=== PATIENT | male | born 1930 | race Two or more races ===

== ENCOUNTER 2018-11-09 18:45 | Inpatient (IN) | payer MEDICARE, OTHER ==
[~2018-11-09] VITALS: Ht 167.6 cm; Wt 72.3 kg
[~2018-11-09 18:45] MED LIST: UNOBMED
[2018-11-09 19:15] VITALS: BP 195/99
--- NOTE | 2018-11-09 19:20 | NUR ---
ED Nurse Note: Patient walked in to ER with his caregiver, c/o shakiness. Per patient's caregiver she noticed him shaky, and decided to bring to ER. AAO x4, BP 195/99 other VSSat this time, BS upon arrival is 151, skin is dry warm to touch.
--- NOTE | 2018-11-09 19:35 | Emergency Room Report ---
History of Present Illness General Chief Complaint: General Complaint Source: Patient, Family Member Present Illness HPI Patient presents after an episode of shaking. The family believed that his blood sugar was low at that time. Paramedics came out and the family believes that they administered insulin however this is not possible. Most likely an Accu-Chek was performed. They were advised to come to the emergency department. The patient has a history of hypertension and diabetes. It is not certain what medications the patient takes. He is denying all symptoms at this time including pain, weakness, nausea, vomiting, cough, shortness of breath, dysuria with diarrhea, skin rashes, head ache. Daughter is unable to tell us what medications the patient is on. She insists that the medications are at home. The patient was admitted in 2016 with these discharge diagnoses: 1. Methicillin-resistant Staphylococcus aureus cellulitis. 2. Escherichia coli urinary tract infection. 3. Paroxysmal atrial fibrillation. 4. Hypertensive heart disease with hypertensive urgency. 5. Moderate protein-calorie malnutrition. 6. Cellulitis of leg. 7. Acute on chronic diastolic congestive heart failure. 8. Chronic kidney disease. 9. Atrial fibrillation with rapid ventricular response, resolved. 10. Sepsis. 11. Diabetes, out of control. 12. Stage II sacral ulcer, present on admission with full-thickness erosion on the right dorsal foot and left buttock, present on admission. Allergies: Coded Allergies: PENICILLIN G (Verified Allergy, Unknown, 11/08/15) Patient History Past Medical History: see triage record Social History: Denies: smoking Social History Narrative Brought in by family Reviewed Nursing Documentation: PMH: Agreed; PSxH: Agreed Nursing Documentation-PM Past Medical History: No History, Except For Hx Diabetes: Yes Review of Systems All Other Systems: negative except mentioned in HPI Physical Exam Vital Signs Date Time Temp Pulse Resp B/P (MAP) Pulse Ox O2 Delivery O2 Flow Rate FiO2 11/09/18 18:51 98.4 76 21 165/63 (97) 96 Room Air Sp02 EP Interpretation: reviewed, normal General Appearance: alert, non-toxic, Chronically Ill Head: normocephalic Eyes: bilateral eye normal inspection, bilateral eye PERRL, bilateral eye EOMI ENT: moist mucus membranes Neck: full range of motion, supple, no bony tend Respiratory: chest non-tender, lungs clear, normal breath sounds Cardiovascular #1: regular rate, rhythm Cardiovascular #2: 2+ radial (R) Gastrointestinal: normal inspection, normal bowel sounds, non tender, no mass, non-distended Genitourinary: no CVA tenderness Musculoskeletal: back normal, normal range of motion Neurologic: alert, motor strength/tone normal, sensory intact, speech normal, oriented Psychiatric: other - Flat affect and denying most symptoms Skin: no rash, warm/dry Medical Decision Making Diagnostic Impression: Primary Impression: UTI (urinary tract infection) Qualified Codes: N39.0 - Urinary tract infection, site not specified Additional Impressions: Renal failure Qualified Codes: N17.9 - Acute kidney failure, unspecified Hypertension Qualified Codes: I10 - Essential (primary) hypertension ER Course Patient presents post shaking episode. Is unclear whether her blood sugar was abnormal at that time but it is suggested that it was normal. Differential includes acute myocardial infarction, occult infection, electrolyte imbalance, glucose imbalance amongst others. The family and the patient denied loss of consciousness. Evaluation will be with EKG, chest x-ray and labs. The patient is hypertensive and this needs to be followed. Was requested that the family give us blood pressure medication. Also we will attempt to contact [facility] for the medications the patient is on. A dose of Catapres will be given orally. EKG without injury. Chest x-ray no infiltrates. CBC unremarkable. CMP with renal insufficiency. (At the time we did not have the correct name and unable to correlate prior labs.) Urinalysis with pyuria. Elevated BNP. Antibiotics administered. BP slightly better but still high. Will give Labetalol as slightly tachycardic. Patient admitted to medical floor Dr. Murphy. At the time of admission there is no evidence of the private attending. Laboratory Tests Test 11/09/18 19:55 11/09/18 20:30 White Blood Count 7.9 K/UL (4.8-10.8) Red Blood Count 3.43 M/UL (4.70-6.10) L Hemoglobin 10.7 G/DL (14.2-18.0) L Hematocrit 30.8 % (42.0-52.0) L Mean Corpuscular Volume 90 FL (80-99) Mean Corpuscular Hemoglobin 31.3 PG (27.0-31.0) H Mean Corpuscular Hemoglobin Concent 34.8 G/DL (32.0-36.0) Red Cell Distribution Width 12.5 % (11.6-14.8) Platelet Count 188 K/UL (150-450) Mean Platelet Volume 5.8 FL (6.5-10.1) L Neutrophils (%) (Auto) 52.1 % (45.0-75.0) Lymphocytes (%) (Auto) 35.2 % (20.0-45.0) Monocytes (%) (Auto) 8.4 % (1.0-10.0) Eosinophils (%) (Auto) 3.9 % (0.0-3.0) H Basophils (%) (Auto) 0.4 % (0.0-2.0) Prothrombin Time 9.7 SEC (9.30-11.50) Prothrombin Time INR 0.9 (0.9-1.1) PTT 25 SEC (23-33) Sodium Level 139 MMOL/L (136-145) Potassium Level 4.5 MMOL/L (3.5-5.1) Chloride Level 108 MMOL/L (98-107) H Carbon Dioxide Level 22 MMOL/L (21-32) Anion Gap 9 mmol/L (5-15) Blood Urea Nitrogen 49 mg/dL (7-18) H Creatinine 3.3 MG/DL (0.55-1.30) H Estimate Glomerular Filtration Rate mL/min (>60) Glucose Level 127 MG/DL (74-106) H Lactic Acid Level 0.60 mmol/L (0.4-2.0) Calcium Level 8.6 MG/DL (8.5-10.1) Total Bilirubin 0.2 MG/DL (0.2-1.0) Aspartate Amino Transferase (AST) 15 U/L (15-37) Alanine Aminotransferase (ALT) 12 U/L (12-78) Alkaline Phosphatase 77 U/L (46-116) Total Creatine Kinase 137 U/L (26-308) Troponin I 0.012 ng/mL (0.000-0.056) Pro-B-Type Natriuretic Peptide 1931 pg/mL (0-125) H Total Protein 6.4 G/DL (6.4-8.2) Albumin 3.4 G/DL (3.4-5.0) Globulin 3.0 g/dL Albumin/Globulin Ratio 1.1 (1.0-2.7) Lipase 449 U/L (73-393) H Urine Color Pale yellow Urine Appearance Clear Urine pH 6 (4.5-8.0) Urine Specific [place] 1.015 (1.005-1.035) Urine Protein 4+ (NEGATIVE) H Urine Glucose (UA) 1+ (NEGATIVE) H Urine Ketones Negative (NEGATIVE) Urine Blood 1+ (NEGATIVE) H Urine Nitrite Positive (NEGATIVE) H Urine Bilirubin Negative (NEGATIVE) Urine Urobilinogen Normal MG/DL (0.0-1.0) Urine Leukocyte Esterase 3+ (NEGATIVE) H Urine RBC 2-4 /HPF (0 - 0) H Urine WBC 30-40 /HPF (0 - 0) H Urine Squamous Epithelial Cells None /LPF (NONE/OCC) Urine Bacteria Many /HPF (NONE) H EKG Diagnostic Results Rate: normal Rhythm: NSR ST Segments: no acute changes - Sinus rhythm with first-degree AV block left axis deviation bundle branch block Rhythm Strip Diag. Results EP Interpretation: yes Rhythm: NSR, no PVC's, no ectopy Chest X-Ray Diagnostic Results Chest X-Ray Diagnostic Results : Chest X-Ray Ordered: Yes # of Views/Limited/Complete: 1 View Indication: Other EP Interpretation: Yes Interpretation: no consolidation, no effusion, no pneumothorax Impression: No acute disease Electronically Signed by: Electronically signed by Geoff Liu MD Last Vital Signs Date Time Temp Pulse Resp B/P (MAP) Pulse Ox O2 Delivery O2 Flow Rate FiO2 11/10/18 04:00 97.7 82 18 174/84 (114) 96 11/10/18 00:42 Room Air Status: improved Disposition: ADMITTED INPATIENT Condition: Serious Geoff Liu MD Nov 09, 2018 19:35
[2018-11-09 20:23] LABS: ANION GAP 9 mmol/L (5-15); BLOOD UREA NITROGEN 49 mg/dL (7-18); CALCIUM 8.6 MG/DL (8.5-10.1); CARBON DIOXIDE 22 MMOL/L (21-32); CHLORIDE 108 MMOL/L (98-107); CREATININE 3.3 MG/DL (0.55-1.30); POTASSIUM 4.5 MMOL/L (3.5-5.1); SODIUM 139 MMOL/L (136-145)
[2018-11-09 20:24] LABS: INR 0.9 (0.9-1.1)
[2018-11-09 20:26] LABS: BASOPHILS % (AUTO) 0.4 % (0.0-2.0); EOSINOPHILS % (AUTO) 3.9 % (0.0-3.0); HEMATOCRIT 30.8 % (42.0-52.0); HEMOGLOBIN 10.7 G/DL (14.2-18.0); LYMPHOCYTES % (AUTO) 35.2 % (20.0-45.0); MEAN CORPUSCULAR VOLUME 90 FL (80-99); MONOCYTES % (AUTO) 8.4 % (1.0-10.0); NEUTROPHILS % (AUTO) 52.1 % (45.0-75.0); PLATELET COUNT 188 K/UL (150-450); RED BLOOD COUNT 3.43 M/UL (4.70-6.10); RED CELL DISTRIBUTION WIDTH 12.5 % (11.6-14.8); WHITE BLOOD COUNT 7.9 K/UL (4.8-10.8)
[2018-11-09 20:33] LABS: ALANINE AMINOTRANSFERASE 12 U/L (12-78); ALBUMIN 3.4 G/DL (3.4-5.0); ALBUMIN/GLOBULIN RATIO 1.1 (1.0-2.7); ALKALINE PHOSPHATASE 77 U/L (46-116); ASPARTATE AMINO TRANSFERASE 15 U/L (15-37); BILIRUBIN,TOTAL 0.2 MG/DL (0.2-1.0); CREATINE KINASE 137 U/L (26-308)
[2018-11-09 20:37] LABS: APPEARANCE,URINE CLEAR; BILIRUBIN, URINE NEGATIVE (NEGATIVE); COLOR,URINE PALE YELLOW; GLUCOSE, URINE (UA) 1+ (NEGATIVE); KETONES,URINE NEGATIVE (NEGATIVE); LEUKOCYTE ESTERASE ,URINE 3+ (NEGATIVE); NITRITE,URINE POSITIVE (NEGATIVE); PH,URINE 6 (4.5-8.0); PROTEIN,URINE 4+ (NEGATIVE); UROBILINOGEN,URINE NORMAL MG/DL (0.0-1.0)
[2018-11-09] MEDS ORDERED: cloNIDine 0.2mg Tab ORAL ONE (21:00)
[2018-11-09] MEDS ORDERED: cefTRIAXone 1 GM in NS 55 ML IVPB ONE (21:00)
[2018-11-09 21:15] VITALS: BP 185/87
[2018-11-09] MEDS ORDERED: Labetalol 5mg/ml 20ml vial IV ONE (22:15)
--- NOTE | 2018-11-09 23:00 | NUR ---
NURSE NOTES: Received a report from ANSON Mckeon. Awaiting for pt's arrival.
[2018-11-09 23:15] VITALS: BP 170/65
--- NOTE | 2018-11-09 23:30 | NUR ---
ED Nurse Note: Patient was admited to [facility] due to severe UTI, kidney failure. AAO x4, VSS at this time, skin is warm to touch. Patient was transfered via gurney, with all belongings.
[2018-11-10] VITALS (9 sets, daily range): BP systolic 118–186; BP diastolic 68–88
--- NOTE | 2018-11-10 | NUR ---
NURSE NOTES: Pt arrived in the unit. AAOX4. Able to make needs known. Kiswahili speaking, but speaks a little bit of American. On room air. No c/o pain/discomfort. IV site is patent and intact. Skin on the feet are very dry. Overall, skin is intact. He has his own cane at the bedside. He has $26 armijo in his wallet. Belongings are checked. Belonging list is signed. Bed in lowest position. Bed alarm is on. Call light within reach. Will continue to monitor.
[2018-11-10] MEDS: HydrALAZINE 25mg tab ORAL PRN ×2 (00:23→04:36)
[2018-11-10] MEDS ORDERED: HydrALAZINE 25mg tab ORAL SCH (01:00)
[2018-11-10] MEDS: NovoLOG Insulin Flexpen SUBQ SCH ×4 (05:59→20:58)
[2018-11-10 07:14] LABS: BASOPHILS % (AUTO) 1.3 % (0.0-2.0); HEMOGLOBIN 10.2 G/DL (14.2-18.0); LYMPHOCYTES % (AUTO) 33.5 % (20.0-45.0); MEAN CORPUSCULAR VOLUME 93 FL (80-99); MONOCYTES % (AUTO) 7.3 % (1.0-10.0); NEUTROPHILS % (AUTO) 53.9 % (45.0-75.0); PLATELET COUNT 169 K/UL (150-450); RED BLOOD COUNT 3.32 M/UL (4.70-6.10); RED CELL DISTRIBUTION WIDTH 13.5 % (11.6-14.8)
--- NOTE | 2018-11-10 07:15 | NUR ---
HAND-OFF: Report given to ANSON Napier.
[2018-11-10 07:32] LABS: ANION GAP 12 mmol/L (5-15); BLOOD UREA NITROGEN 46 mg/dL (7-18); CALCIUM 8.6 MG/DL (8.5-10.1); CARBON DIOXIDE 19 MMOL/L (21-32); CHLORIDE 109 MMOL/L (98-107); POTASSIUM 4.7 MMOL/L (3.5-5.1); SODIUM 140 MMOL/L (136-145)
--- NOTE | 2018-11-10 07:42 | NUR ---
NURSE NOTES: received report from ANSON Arreola. patient in bed. alert. verbally responsive in Tongan. no respiratory distress noted on room air. no pain at this time. IV on RAC running 1/2 NS 75/hr. bed in the lowest position. call light within reach. alarm on . cane at the bed side. will continue to provide plan of care.
[2018-11-10 07:46] LABS: CREATININE 3.1 MG/DL (0.55-1.30)
[2018-11-10] MEDS ORDERED: Levofloxacin 500mg tab ORAL SCH (09:00)
[2018-11-10] MEDS ORDERED: Carvedilol 6.25mg Tab ORAL SCH (09:00)
[2018-11-10] MEDS: Carvedilol 12.5mg tab ORAL SCH ×2 (09:44→20:55)
--- NOTE | 2018-11-10 12:00 | NUR ---
NURSE NOTES: called acute care physician Rochelle and left message to bring patient's home medications.
--- NOTE | 2018-11-10 12:31 | Diagnostic Imaging Report ---
Indication: Acute renal failure Technique: Grayscale and duplex images of the kidneys, retroperitoneum, and bladder were obtained. Comparison: none Findings: Right kidney measures 10.4 cm in length. Left kidney measures 9.7 cm in length. Both kidneys demonstrate normal echogenicity. There is mild left hydronephrosis and mild right renal collecting system fullness. Renal cysts are demonstrated bilaterally. The bladder volume measures 175 mL. Patient did not wish to void at the time of the exam. The prostate is enlarged, calculated volume 108 mL. Bilateral ureteral jets are demonstrated within the bladder There is incidental finding of gallstones. Normal caliber common bile duct Impression: Mild left hydronephrosis and right collecting system fullness. Etiology not demonstrated but downstream obstruction possible Prostatomegaly Bilateral renal cysts Cholelithiasis incidentally noted .
--- NOTE | 2018-11-10 13:05 | NUR ---
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 RENAL FAILURE VS: BP 165/63, P 76, T 98.4, RR 21, SpO2 96 UR WBC 30-40, BACTERIA many, BUN 49, CR 3.3 US RENAL: Mild left hydronephrosis and right collecting system fullness IS: CLONIDINE 0.2mg CEFTRIAXONE 55ml IVPB LABETALOL 10mg IV NS x1L IV ADMITTED TO MED/[facility] DCP: TO BE DETERMIND ON ACRE NEED AT TIME OF DC Addendum: 11/13/18 at 0859 by Lise Avery LVN Patient is from home DCP: Return home
[2018-11-10] MEDS: HydrALAZINE 50mg tab ORAL SCH ×2 (13:13→22:24)
--- NOTE | 2018-11-10 14:00 | NUR ---
NURSE NOTES: restorative care technician/Rochelle brought patient's home medications. put mediations on the list.
[2018-11-10] MEDS ORDERED: ADALAT10 MG ORAL (16:06)
[2018-11-10] MEDS ORDERED: FLOMAX0.4 MG ORAL (16:10)
[2018-11-10] MEDS ORDERED: GABAPENTIN100 MG ORAL (16:10)
[2018-11-10] MEDS ORDERED: PRAVASTATIN SOD20 M1 ORAL (16:10)
[2018-11-10] MEDS ORDERED: COLACE100 MG ORAL (16:10)
[2018-11-10] MEDS ORDERED: FERROUS SULFAT325 MG ORAL (16:10)
--- NOTE | 2018-11-10 17:30 | NUR ---
NURSE NOTES: blood pressure 186/71 @1600. no symptomatic. no c/o headache. given norvasc 10mg tap po as ordered at 1700. rechecked blood pressure at 1730. 137/78. alert, oriented. verbally responsive. no pain at this time.
--- NOTE | 2018-11-10 17:41 | Consultation ---
History of Present Illness General Date patient seen: Nov 10, 2018 Chief Complaint: General Complaint Present Illness HPI 88 y/o M with hx of HTN, Dm2, MRSA cellulitis 2016, E. coli UTI 2016, pAfib, CHF , CKD, sacral decubitus ulcer presents to ED on 11/09 after one episode of shaking. Patient found to have CONCETTA. Denied weakness, pain, nausea, vomiting, cough, SOB, dysuria. ID consulted for concern for UTI. Allergies: Coded Allergies: PENICILLIN G (Verified Allergy, Unknown, 11/08/15) Medication History Scheduled Docusate Sodium* (Colace*), 100 MG ORAL TWICE A DAY, (Reported) Ferrous Sulfate* (Ferrous Sulfate*), 325 MG ORAL DAILY, (Reported) Gabapentin* (Gabapentin*), 100 MG ORAL BEDTIME, (Reported) Nifedipine (Nifedipine*), 90 MG ORAL DAILY, (Reported) Pravastatin Sod* (Pravastatin Sod*), 40 MG ORAL BEDTIME, (Reported) Tamsulosin HCl (Flomax), 0.4 MG ORAL DAILY, (Reported) Miscellaneous Medications Unable to Obtain Medications (Unable To Obtain Meds), (Reported) Patient History Healthcare decision maker Resuscitation status Full Code Advanced Directive on File No Patient History Narrative Pmhx: as above Shx: Denies smoking Fhx: non contributory Review of Systems All Other Systems: negative except mentioned in HPI Physical Exam Physical Exam Narrative General Appearance: alert, non-toxic, Chronically Ill Head: normocephalic Eyes: bilateral eye normal inspection, bilateral eye PERRL, bilateral eye EOMI ENT: moist mucus membranes Neck: full range of motion, supple, no bony tend Respiratory: chest non-tender, lungs clear, normal breath sounds Cardiovascular : regular rate, rhythm Gastrointestinal: normal inspection, normal bowel sounds, non tender, no mass, non-distended Genitourinary: no CVA tenderness Musculoskeletal: back normal, normal range of motion Neurologic: alert, motor strength/tone normal, sensory intact, speech normal, oriented Psychiatric: other - Flat affect and denying most symptoms Skin: no rash, warm/dryAbx: Last 24 Hour Vital Signs Date Time Temp Pulse Resp B/P (MAP) Pulse Ox O2 Delivery O2 Flow Rate FiO2 11/10/18 17:03 73 186/71 11/10/18 16:00 97.8 73 18 186/71 (109) 96 11/10/18 13:13 159/87 11/10/18 12:00 98.0 79 18 157/77 (103) 96 11/10/18 09:44 78 118/68 11/10/18 09:44 78 118/68 11/10/18 09:00 Room Air 11/10/18 08:00 98.0 78 18 118/68 (85) 97 11/10/18 04:36 174/84 11/10/18 04:00 97.7 82 18 174/84 (114) 96 11/10/18 00:42 Room Air 11/10/18 00:23 161/70 11/10/18 00:00 98.1 82 19 161/70 (100) 95 11/09/18 23:32 98.2 74 14 170/65 98 Room Air 11/09/18 23:15 98.4 74 14 170/65 98 Room Air 11/09/18 22:31 79 185/89 11/09/18 21:15 98.4 72 18 185/87 98 Room Air 11/09/18 21:11 201/99 11/09/18 19:15 76 21 Room Air 11/09/18 19:15 98.4 21 195/99 96 Room Air 11/09/18 18:51 98.4 76 21 165/63 (97) 96 Room Air Intake and Output 11/09/18 11/10/18 18:59 06:59 Intake Total 570 ml Balance 570 ml Intake Oral 120 ml IV Total 450 ml # Voids 3 Laboratory Tests Test 11/09/18 19:55 11/09/18 20:30 11/10/18 06:00 White Blood Count 7.9 K/UL (4.8-10.8) 9.0 K/UL (4.8-10.8) Red Blood Count 3.43 M/UL (4.70-6.10) L 3.32 M/UL (4.70-6.10) L Hemoglobin 10.7 G/DL (14.2-18.0) L 10.2 G/DL (14.2-18.0) L Hematocrit 30.8 % (42.0-52.0) L 31.0 % (42.0-52.0) L Mean Corpuscular Volume 90 FL (80-99) 93 FL (80-99) Mean Corpuscular Hemoglobin 31.3 PG (27.0-31.0) H 30.6 PG (27.0-31.0) Mean Corpuscular Hemoglobin Concent 34.8 G/DL (32.0-36.0) 32.8 G/DL (32.0-36.0) Red Cell Distribution Width 12.5 % (11.6-14.8) 13.5 % (11.6-14.8) Platelet Count 188 K/UL (150-450) 169 K/UL (150-450) Mean Platelet Volume 5.8 FL (6.5-10.1) L 5.7 FL (6.5-10.1) L Neutrophils (%) (Auto) 52.1 % (45.0-75.0) 53.9 % (45.0-75.0) Lymphocytes (%) (Auto) 35.2 % (20.0-45.0) 33.5 % (20.0-45.0) Monocytes (%) (Auto) 8.4 % (1.0-10.0) 7.3 % (1.0-10.0) Eosinophils (%) (Auto) 3.9 % (0.0-3.0) H 4.0 % (0.0-3.0) H Basophils (%) (Auto) 0.4 % (0.0-2.0) 1.3 % (0.0-2.0) Prothrombin Time 9.7 SEC (9.30-11.50) Prothromb Time International Ratio 0.9 (0.9-1.1) Activated Partial Thromboplast Time 25 SEC (23-33) Sodium Level 139 MMOL/L (136-145) 140 MMOL/L (136-145) Potassium Level 4.5 MMOL/L (3.5-5.1) 4.7 MMOL/L (3.5-5.1) Chloride Level 108 MMOL/L (98-107) H 109 MMOL/L (98-107) H Carbon Dioxide Level 22 MMOL/L (21-32) 19 MMOL/L (21-32) L Anion Gap 9 mmol/L (5-15) 12 mmol/L (5-15) Blood Urea Nitrogen 49 mg/dL (7-18) H 46 mg/dL (7-18) H Creatinine 3.3 MG/DL (0.55-1.30) H 3.1 MG/DL (0.55-1.30) H Estimat Glomerular Filtration Rate mL/min (>60) mL/min (>60) Glucose Level 127 MG/DL (74-106) H 142 MG/DL (74-106) H Lactic Acid Level 0.60 mmol/L (0.4-2.0) Calcium Level 8.6 MG/DL (8.5-10.1) 8.6 MG/DL (8.5-10.1) Total Bilirubin 0.2 MG/DL (0.2-1.0) Aspartate Amino Transf (AST/SGOT) 15 U/L (15-37) Alanine Aminotransferase (ALT/SGPT) 12 U/L (12-78) Alkaline Phosphatase 77 U/L (46-116) Total Creatine Kinase 137 U/L (26-308) Troponin I 0.012 ng/mL (0.000-0.056) Pro-B-Type Natriuretic Peptide 1931 pg/mL (0-125) H Total Protein 6.4 G/DL (6.4-8.2) Albumin 3.4 G/DL (3.4-5.0) Globulin 3.0 g/dL Albumin/Globulin Ratio 1.1 (1.0-2.7) Lipase 449 U/L (73-393) H Urine Color Pale yellow Urine Appearance Clear Urine pH 6 (4.5-8.0) Urine Specific [place] 1.015 (1.005-1.035) Urine Protein 4+ (NEGATIVE) H Urine Glucose (UA) 1+ (NEGATIVE) H Urine Ketones Negative (NEGATIVE) Urine Blood 1+ (NEGATIVE) H Urine Nitrite Positive (NEGATIVE) H Urine Bilirubin Negative (NEGATIVE) Urine Urobilinogen Normal MG/DL (0.0-1.0) Urine Leukocyte Esterase 3+ (NEGATIVE) H Urine RBC 2-4 /HPF (0 - 0) H Urine WBC 30-40 /HPF (0 - 0) H Urine Squamous Epithelial Cells None /LPF (NONE/OCC) Urine Bacteria Many /HPF (NONE) H Microbiology Date/Time Source Procedure Growth Status 11/09/18 20:30 Urine,Clean Catch Urine Culture - Preliminary NO GROWTH Resulted Height (Feet): 5 Height (Inches): 6.00 Weight (Pounds): 160 Medications Current Medications Medications (Trade) Dose Ordered Sig/Tereza Route PRN Reason Start Time Stop Time Status Last Admin Dose Admin Acetaminophen (Tylenol) 650 mg Q4H PRN ORAL Mild Pain (Pain Scale 1-3) 11/09/18 22:30 12/09/18 22:29 Amlodipine Besylate (Norvasc) 5 mg BID ORAL 11/10/18 09:00 12/10/18 08:59 11/10/18 17:03 Carvedilol (Coreg) 12.5 mg EVERY 12 HOURS ORAL 11/10/18 09:00 12/10/18 08:59 11/10/18 09:44 Dextrose (Dextrose 50%) 25 ml Q30M PRN IV Hypoglycemia 11/09/18 22:30 12/09/18 22:29 Dextrose (Dextrose 50%) 50 ml Q30M PRN IV Hypoglycemia 11/09/18 22:30 12/09/18 22:29 Diphenhydramine HCl (Benadryl) 25 mg Q6H PRN ORAL Itching/Pruritis 11/09/18 22:30 12/09/18 22:29 Hydralazine HCl (Apresoline) 25 mg Q4HR PRN ORAL For High Blood Pressure 11/10/18 01:00 12/10/18 00:59 11/10/18 04:36 Hydralazine HCl (Apresoline) 50 mg Q8HR ORAL 11/10/18 14:00 12/10/18 13:59 11/10/18 13:13 Insulin Aspart (NovoLOG) BEFORE MEALS AND HS SUBQ 11/10/18 06:30 12/10/18 06:29 11/10/18 17:04 Levofloxacin (Levaquin) 250 mg Q48H ORAL 11/11/18 09:00 11/18/18 08:59 Pantoprazole (Protonix) 40 mg DAILY ORAL 11/10/18 09:00 12/10/18 08:59 11/10/18 09:44 Sodium Chloride 1,000 ml @ 75 mls/hr [id number] IV 11/09/18 23:25 12/09/18 23:24 11/10/18 13:04 Assessment/Plan Assessment/Plan: Abx: Levaquin 11/10- Ceftriaxone x 11/09 Assessment: Afebrile No leukocytosis r/o Probable UTI (+frequency) -u/a wbc 20-40,nit +. leuk +3; ucx NTD CONCETTA on CKD Mild Hydronephrosis -Renal US: Mild left hydronephrosis and right collecting system fullness. Etiology not demonstrated but downstream obstruction possible. Prostatomegaly. Bilateral renal cysts. Cholelithiasis incidentally noted HTN Dm2 MRSA cellulitis 2016 E. coli UTI 2016 pAfib CHF CKD sacral decubitus ulcer Plan: -Continue empiric Levaquin #1 pending UCx -f/u cx -Monitor CBC/CMP, temperatures -aspiration precautions Thank you for this consultation. Will continue to follow along with you. Discussed with ANSON. Henna Pendleton M.D. Nov 10, 2018 17:41
--- NOTE | 2018-11-10 17:45 | History and Physical Report ---
DATE OF ADMISSION: 11/09/2018 REASON FOR ADMISSION: 1. Shaking. 2. Hypoglycemia. 3. UTI. HISTORY OF PRESENT ILLNESS: The patient is an 88-year-old gentleman, who presented with episodes of shaking. Family believes that he was hypoglycemic. Paramedics had come out and seemingly had done an Accu-Chek. He was advised to come to the emergency room for further evaluation and care. The patient has some underlying hypertension and diabetes. He did have an elevated white count with possible urinary tract infection. Noted elevated creatinine from baseline. Creatinine upon admission was 3.3. Baseline 3 years ago was approximately 1.5. PAST MEDICAL HISTORY: 1. Methicillin Staph aureus cellulitis. 2. E. coli urinary tract infection. 3. Paroxysmal atrial fibrillation. 4. Hypertensive heart disease. 5. Leg cellulitis. 6. Diabetes. 7. Stage II sacral ulcer. PAST SURGICAL HISTORY: Noncontributory. ALLERGIES: Penicillin. SOCIAL HISTORY: No tobacco, alcohol, or illicit drug use. FAMILY HISTORY: Positive for hypertension and diabetes. REVIEW OF SYSTEMS: NEUROLOGIC: The patient denies headache, change in vision, syncope, or presyncopal episodes. CARDIOVASCULAR: No current chest pain, palpitations, or angina. PULMONARY: No difficulty breathing, productive cough, or sputum. GASTROINTESTINAL/GENITOURINARY: No change in urine or bowel habits. No nausea, vomiting, or diarrhea. ENDOCRINOLOGY: No night sweats, fevers, or chills. PHYSICAL EXAMINATION: VITAL SIGNS: Blood pressure 174/84, respiratory rate 18, pulse 82, and temperature 97.7. GENERAL: The patient is awake, seemingly alert, and not otherwise in distress. HEENT: Extraocular muscles intact. No lymphadenopathy noted. Oropharyngeal mucosa clear and dry. CARDIOVASCULAR: S1, S2. No rubs or gallops. PULMONARY: Clear to auscultation bilaterally. No rales, rhonchi or wheezes. ABDOMINAL: Obese, nondistended, and nontender. EXTREMITY: No edema. LABORATORY DATA: Laboratories dated 11/10/2018 sodium 140, potassium 4.7, and creatinine 3.1. Lipase 449. White cell count 9, hemoglobin 10.2, and platelet count 169,000. ASSESSMENT AND PLAN: 1. Urinary tract infection. I have initiated intravenous antibiotics and we will also consult Infectious Disease for further evaluation and management. We will continue fluoroquinolones as the patient is allergic to penicillin. 2. Diabetes mellitus. At this time, we will continue to monitor the patient with Accu-Cheks and insulin sliding scale. 3. Hypertension. We will continue to adjust medications. At this time, we are still trying to obtain the patient's home medications and we will adjust as deemed necessary. 4. DVT prophylaxis with SCDs. 5. 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 Creatinine 3 years ago was 1.5. Currently has improved to 3.1. Renal ultrasound to rule out possibility of obstructive etiology. Avoid nephrotoxins for treating underlying urinary tract infection and gently hydrate the patient. Orlando Murphy MD DR: AJIT JOB#: [id number] CC: GOKUL
--- NOTE | 2018-11-10 19:31 | NUR ---
NURSE NOTES:Patient received from Jevon Marley Patient A/A/OX4 Patient denies any pain at this time . No s/s of distress noted RFA g#22 1/2 ns at 75 cc/ hr infusing well. safety/ fall precaution call light within reach . bed in low position at all times . bed alarm on . will continue to monitor
--- NOTE | 2018-11-10 19:31 | NUR ---
HAND-OFF: Report given to ANSON Sheth.
[2018-11-11] VITALS: BP 150/81
[2018-11-11 04:00] VITALS: BP 138/88
[2018-11-11] MEDS: HydrALAZINE 50mg tab ORAL SCH ×3 (06:17→21:08)
[2018-11-11] MEDS: NovoLOG Insulin Flexpen SUBQ SCH ×4 (06:21→21:09)
[2018-11-11 06:49] LABS: ANION GAP 9 mmol/L (5-15); BLOOD UREA NITROGEN 40 mg/dL (7-18); CALCIUM 8.1 MG/DL (8.5-10.1); CARBON DIOXIDE 21 MMOL/L (21-32); CHLORIDE 112 MMOL/L (98-107); CREATININE 2.8 MG/DL (0.55-1.30); POTASSIUM 4.9 MMOL/L (3.5-5.1); SODIUM 142 MMOL/L (136-145)
[2018-11-11 06:57] LABS: BASOPHILS % (AUTO) 1.2 % (0.0-2.0); HEMOGLOBIN 9.9 G/DL (14.2-18.0); MEAN CORPUSCULAR VOLUME 93 FL (80-99); MONOCYTES % (AUTO) 7.1 % (1.0-10.0); NEUTROPHILS % (AUTO) 62.7 % (45.0-75.0); PLATELET COUNT 172 K/UL (150-450); RED BLOOD COUNT 3.24 M/UL (4.70-6.10); RED CELL DISTRIBUTION WIDTH 13.1 % (11.6-14.8); WHITE BLOOD COUNT 8.4 K/UL (4.8-10.8)
--- NOTE | 2018-11-11 07:55 | NUR ---
NURSE NOTES: received report from OPAL Sheth. patient in bed. having breakfast. alert. oriented. verbally responsive. no respiratory distress noted. no c/o pain at this time. IV on RFA 22g running 1/2 NS 75/hr. monitor blood pressure closely. no s/sx of hypo/hyperglycemia noted. fall risk. ambulatory. cane at the bedside. call light within reach. alarm on. bed in the lowest position and locked. emptied urinal.will continue to provide plan of care.
--- NOTE | 2018-11-11 07:55 | NUR ---
NURSE NOTES: received report from ANSON Sheth
--- NOTE | 2018-11-11 07:55 | NUR ---
HAND-OFF: Report given to jessica Marley
[2018-11-11 08:00] VITALS: BP 156/80
[2018-11-11] MEDS: Carvedilol 12.5mg tab ORAL SCH ×2 (08:15→21:08)
--- NOTE | 2018-11-11 09:10 | Nephrology Progress Note ---
Assessment/Plan Assessment/Plan: A/P 1) CONCETTA- Cr improving. Continue IVFs and avoid nephrotoxins 2) Mild left hydronephrosis and right collecting system fullness. Etiology not demonstrated but downstream obstruction possible - enlarged prostate- add flomax 3) UTI- Abx per ID 4) HTN- start home medciations Subjective Date patient seen: Nov 11, 2018 Time patient seen: 09:06 ROS Limited/Unobtainable: Yes Allergies: Coded Allergies: PENICILLIN G (Verified Allergy, Unknown, 11/08/15) Subjective Patient fatigued but arousable Objective Last 24 Hour Vital Signs Date Time Temp Pulse Resp B/P (MAP) Pulse Ox O2 Delivery O2 Flow Rate FiO2 11/11/18 08:15 78 156/80 11/11/18 08:15 78 156/80 11/11/18 08:00 98.1 78 20 156/80 (105) 95 78 11/11/18 06:17 134/83 11/11/18 04:00 98.0 88 20 138/88 (105) 95 88 11/11/18 00:00 98.3 88 20 150/81 (104) 97 74 11/10/18 22:24 161/87 11/10/18 22:01 98.3 74 18 161/87 (111) 97 11/10/18 21:00 Room Air 11/10/18 20:55 88 183/88 11/10/18 20:00 98.0 88 20 183/88 (119) 96 11/10/18 17:30 137/78 (97) 11/10/18 17:03 73 186/71 11/10/18 16:00 97.8 73 18 186/71 (109) 96 11/10/18 13:13 159/87 11/10/18 12:00 98.0 79 18 157/77 (103) 96 11/10/18 09:44 78 118/68 11/10/18 09:44 78 118/68 Intake and Output 11/10/18 11/11/18 19:00 07:00 Intake Total 1380 ml 1445 ml Output Total 400 ml 1150 ml Balance 980 ml 295 ml Intake Oral 480 ml 620 ml IV Total 900 ml 825 ml Output Urine Total 400 ml 1150 ml # Voids 2 2 Laboratory Tests 11/11/18 05:15: White Blood Count 8.4, Red Blood Count 3.24L, Hemoglobin 9.9L, Hematocrit 30.0L , Mean Corpuscular Volume 93, Mean Corpuscular Hemoglobin 30.5, Mean Corpuscular Hemoglobin Concent 32.9, Red Cell Distribution Width 13.1, Platelet Count 172, Mean Platelet Volume 5.7L, Neutrophils (%) (Auto) 62.7, Lymphocytes ( %) (Auto) 25.0, Monocytes (%) (Auto) 7.1, Eosinophils (%) (Auto) 4.0H, Basophils (%) (Auto) 1.2, Sodium Level 142, Potassium Level 4.9, Chloride Level 112H, Carbon Dioxide Level 21, Anion Gap 9, Blood Urea Nitrogen 40H, Creatinine 2.8H, Estimat Glomerular Filtration Rate , Glucose Level 142H, Calcium Level 8.1L Height (Feet): 5 Height (Inches): 6.00 Weight (Pounds): 159 General Appearance: no apparent distress EENT: normal ENT inspection Neck: normal alignment, supple Cardiovascular: normal rate, regular rhythm Respiratory/Chest: lungs clear, normal breath sounds Abdomen: non tender, soft Edema: no edema noted Arm (L), no edema noted Arm (R), no edema noted Leg (L), no edema noted Leg (R), no edema noted Pedal (L), no edema noted Pedal (R), no edema noted Generalized Orlando Murphy MD Nov 11, 2018 09:10
[2018-11-11 12:00] VITALS: BP 156/105
--- NOTE | 2018-11-11 13:32 | Infectious Diseases Prog Note ---
Assessment/Plan Assessment/Plan Abx: Levaquin 11/10- Ceftriaxone x 11/09 Assessment: Afebrile No leukocytosis r/o Probable UTI (+frequency) -u/a wbc 20-40,nit +. leuk +3; ucx 70-80k mixed gram positive growth CONCETTA on CKD; improving Mild Hydronephrosis -Renal US: Mild left hydronephrosis and right collecting system fullness. Etiology not demonstrated but downstream obstruction possible. Prostatomegaly. Bilateral renal cysts. Cholelithiasis incidentally noted HTN Dm2 MRSA cellulitis 2016 E. coli UTI 2016 pAfib CHF CKD sacral decubitus ulcer Plan: -Continue empiric Levaquin #2/3-5 for probable UTI -f/u cx -Monitor CBC/CMP, temperatures -aspiration precautions Thank you for this consultation. Will continue to follow along with you. Discussed with RN. Subjective Allergies: Coded Allergies: PENICILLIN G (Verified Allergy, Unknown, 11/08/15) Subjective afebrile no leukocytosis Objective Vital Signs Last 24 Hour Vital Signs Date Time Temp Pulse Resp B/P (MAP) Pulse Ox O2 Delivery O2 Flow Rate FiO2 11/11/18 13:06 156/105 11/11/18 12:00 97.9 65 20 156/105 (122) 95 65 11/11/18 09:00 Room Air 11/11/18 08:15 78 156/80 11/11/18 08:15 78 156/80 11/11/18 08:00 98.1 78 20 156/80 (105) 95 78 11/11/18 06:17 134/83 11/11/18 04:00 98.0 88 20 138/88 (105) 95 88 11/11/18 00:00 98.3 88 20 150/81 (104) 97 74 11/10/18 22:24 161/87 11/10/18 22:01 98.3 74 18 161/87 (111) 97 11/10/18 21:00 Room Air 11/10/18 20:55 88 183/88 11/10/18 20:00 98.0 88 20 183/88 (119) 96 11/10/18 17:30 137/78 (97) 11/10/18 17:03 73 186/71 11/10/18 16:00 97.8 73 18 186/71 (109) 96 Height (Feet): 5 Height (Inches): 6.00 Weight (Pounds): 159 Objective General Appearance: alert, non-toxic, Chronically Ill Head: normocephalic Eyes: bilateral eye normal inspection, bilateral eye PERRL, bilateral eye EOMI ENT: moist mucus membranes Neck: full range of motion, supple, no bony tend Respiratory: chest non-tender, lungs clear, normal breath sounds Cardiovascular : regular rate, rhythm Gastrointestinal: normal inspection, normal bowel sounds, non tender, no mass, non-distended Genitourinary: no CVA tenderness Musculoskeletal: back normal, normal range of motion Neurologic: alert, motor strength/tone normal, sensory intact, speech normal, oriented Psychiatric: other - Flat affect and denying most symptoms Skin: no rash, warm/dryAbx: Microbiology Date/Time Source Procedure Growth Status 11/09/18 20:30 Urine,Clean Catch Urine Culture - Preliminary Mixed Gram Positive Organism Resulted Laboratory Tests Test 11/11/18 05:15 White Blood Count 8.4 K/UL (4.8-10.8) Red Blood Count 3.24 M/UL (4.70-6.10) L Hemoglobin 9.9 G/DL (14.2-18.0) L Hematocrit 30.0 % (42.0-52.0) L Mean Corpuscular Volume 93 FL (80-99) Mean Corpuscular Hemoglobin 30.5 PG (27.0-31.0) Mean Corpuscular Hemoglobin Concent 32.9 G/DL (32.0-36.0) Red Cell Distribution Width 13.1 % (11.6-14.8) Platelet Count 172 K/UL (150-450) Mean Platelet Volume 5.7 FL (6.5-10.1) L Neutrophils (%) (Auto) 62.7 % (45.0-75.0) Lymphocytes (%) (Auto) 25.0 % (20.0-45.0) Monocytes (%) (Auto) 7.1 % (1.0-10.0) Eosinophils (%) (Auto) 4.0 % (0.0-3.0) H Basophils (%) (Auto) 1.2 % (0.0-2.0) Sodium Level 142 MMOL/L (136-145) Potassium Level 4.9 MMOL/L (3.5-5.1) Chloride Level 112 MMOL/L (98-107) H Carbon Dioxide Level 21 MMOL/L (21-32) Anion Gap 9 mmol/L (5-15) Blood Urea Nitrogen 40 mg/dL (7-18) H Creatinine 2.8 MG/DL (0.55-1.30) H Estimat Glomerular Filtration Rate mL/min (>60) Glucose Level 142 MG/DL (74-106) H Calcium Level 8.1 MG/DL (8.5-10.1) L Current Medications Medications (Trade) Dose Ordered Sig/Tereza Route PRN Reason Start Time Stop Time Status Last Admin Dose Admin Acetaminophen (Tylenol) 650 mg Q4H PRN ORAL Mild Pain (Pain Scale 1-3) 11/09/18 22:30 12/09/18 22:29 Carvedilol (Coreg) 12.5 mg EVERY 12 HOURS ORAL 11/10/18 09:00 12/10/18 08:59 11/11/18 08:15 Dextrose (Dextrose 50%) 25 ml Q30M PRN IV Hypoglycemia 11/09/18 22:30 12/09/18 22:29 Dextrose (Dextrose 50%) 50 ml Q30M PRN IV Hypoglycemia 11/09/18 22:30 12/09/18 22:29 Diphenhydramine HCl (Benadryl) 25 mg Q6H PRN ORAL Itching/Pruritis 11/09/18 22:30 12/09/18 22:29 Hydralazine HCl (Apresoline) 25 mg Q4HR PRN ORAL For High Blood Pressure 11/10/18 01:00 12/10/18 00:59 11/10/18 04:36 Hydralazine HCl (Apresoline) 50 mg Q8HR ORAL 11/10/18 14:00 12/10/18 13:59 11/11/18 13:06 Insulin Aspart (NovoLOG) BEFORE MEALS AND HS SUBQ 11/10/18 06:30 12/10/18 06:29 11/11/18 12:01 Levofloxacin (Levaquin) 250 mg Q48H ORAL 11/11/18 09:00 11/18/18 08:59 11/11/18 08:15 Pantoprazole (Protonix) 40 mg DAILY ORAL 11/10/18 09:00 12/10/18 08:59 11/11/18 08:15 Sodium Chloride 1,000 ml @ 75 mls/hr [id number] IV 11/09/18 23:25 12/09/18 23:24 11/11/18 01:17 Henna Pendleton M.D. Nov 11, 2018 13:32
[2018-11-11 16:00] VITALS: BP 113/81
--- NOTE | 2018-11-11 19:23 | NUR ---
HAND-OFF: Report given to ANSON Wall.
[2018-11-11 20:00] VITALS: BP_SYST 130; BP_SYST 147; BP_DIAS 72; BP_DIAS 80
--- NOTE | 2018-11-11 20:22 | NUR ---
NURSE NOTES: Patient in bed, awake, alert and verbally responsive. Able to make needs known. Swedish speaking, able to understand some Indonesian. Kept clean and comfortable. Provided safe environment. Bed in low and locked position. IV site noted on the right forearm, patent, IV fluid is infusing as ordered. No complaint of pain or discomfort noted. Respiration is even and unlabored. abdomen is soft and non distended. Call light is at bedside. Will continue plan of care.
[2018-11-12] VITALS: BP 127/63
[2018-11-12 04:00] VITALS: BP 155/72
[2018-11-12] MEDS: HydrALAZINE 50mg tab ORAL SCH ×3 (06:22→21:35)
[2018-11-12] MEDS: NovoLOG Insulin Flexpen SUBQ SCH ×4 (06:23→21:36)
[2018-11-12 06:56] LABS: ANION GAP 11 mmol/L (5-15); BLOOD UREA NITROGEN 36 mg/dL (7-18); CALCIUM 8.2 MG/DL (8.5-10.1); CARBON DIOXIDE 20 MMOL/L (21-32); CHLORIDE 111 MMOL/L (98-107); CREATININE 2.7 MG/DL (0.55-1.30); POTASSIUM 4.5 MMOL/L (3.5-5.1); SODIUM 142 MMOL/L (136-145)
--- NOTE | 2018-11-12 07:10 | NUR ---
HAND-OFF: Report given to ANSON Mahoney.
--- NOTE | 2018-11-12 07:46 | NUR ---
NURSE NOTES: Patient is awake and alert,respirations unlabored.IV fluids infusing as ordered. Patient voiding clear yellow urine. Bed alarm on,call light within reach.
--- NOTE | 2018-11-12 08:20 | Nephrology Progress Note ---
Assessment/Plan Assessment/Plan: A/P 1) CONCETTA- Cr improving. DC IVFs 2) Mild left hydronephrosis and right collecting system fullness. Etiology not demonstrated but downstream obstruction possible - enlarged prostate- added flomax 3) UTI- Abx per ID 4) HTN- stable DC tomorrow with home health after PT evaluation Subjective Date patient seen: Nov 12, 2018 Time patient seen: 08:17 ROS Limited/Unobtainable: Yes Allergies: Coded Allergies: PENICILLIN G (Verified Allergy, Unknown, 11/08/15) Subjective Patient fatigued but arousable. Resting comfortably Objective Last 24 Hour Vital Signs Date Time Temp Pulse Resp B/P (MAP) Pulse Ox O2 Delivery O2 Flow Rate FiO2 11/12/18 06:22 155/72 11/12/18 04:00 98.5 70 20 155/72 (99) 96 11/12/18 00:00 98.1 77 20 127/63 (84) 99 11/11/18 21:08 147/80 11/11/18 21:08 70 147/80 11/11/18 21:00 Room Air 11/11/18 20:00 98.2 70 20 147/80 (102) 96 11/11/18 16:00 98.1 71 20 113/81 (92) 95 71 11/11/18 13:06 156/105 11/11/18 12:00 97.9 65 20 156/105 (122) 95 65 11/11/18 09:00 Room Air Intake and Output 11/11/18 11/12/18 19:00 07:00 Intake Total 1380 ml 1275 ml Output Total 300 ml 450 ml Balance 1080 ml 825 ml Intake Oral 480 ml 500 ml IV Total 900 ml 775 ml Output Urine Total 300 ml 450 ml # Bowel Movements 1 Laboratory Tests 11/12/18 05:00: Sodium Level 142, Potassium Level 4.5, Chloride Level 111H, Carbon Dioxide Level 20L, Anion Gap 11, Blood Urea Nitrogen 36H, Creatinine 2.7H, Estimat Glomerular Filtration Rate , Glucose Level 132H, Calcium Level 8.2L Height (Feet): 5 Height (Inches): 6.00 Weight (Pounds): 159 General Appearance: no apparent distress EENT: normal ENT inspection Neck: normal alignment, supple Cardiovascular: normal rate, regular rhythm Respiratory/Chest: lungs clear Abdomen: non tender, soft Edema: no edema noted Arm (L), no edema noted Arm (R), no edema noted Leg (L), no edema noted Leg (R), no edema noted Pedal (L), no edema noted Pedal (R), no edema noted Generalized Orlando Murphy MD Nov 12, 2018 08:20
[2018-11-12 09:23] VITALS: BP 168/79
[2018-11-12] MEDS: Carvedilol 12.5mg tab ORAL SCH ×2 (09:25→21:35)
[2018-11-12 12:13] VITALS: BP 198/76
--- NOTE | 2018-11-12 13:20 | Infectious Diseases Prog Note ---
Assessment/Plan Assessment/Plan Assessment: Afebrile No leukocytosis r/o Probable UTI (+frequency) -u/a wbc 20-40,nit +. leuk +3; ucx 70-80k mixed gram positive growth CONCETTA on CKD; improving Mild Hydronephrosis -Renal US: Mild left hydronephrosis and right collecting system fullness. Etiology not demonstrated but downstream obstruction possible. Prostatomegaly. Bilateral renal cysts. Cholelithiasis incidentally noted HTN Dm2 MRSA cellulitis 2016 E. coli UTI 2016 pAfib CHF CKD sacral decubitus ulcer Plan: -Continue empiric Levaquin #3/3 -11/09 SP Ceftriaxone x1 -f/u cx -Monitor CBC/CMP, temperatures -aspiration precautions Thank you for this consultation. Will continue to follow along with you. Discussed with RN. Subjective Allergies: Coded Allergies: PENICILLIN G (Verified Allergy, Unknown, 11/08/15) Subjective afebrile no leukocytosis Objective Vital Signs Last 24 Hour Vital Signs Date Time Temp Pulse Resp B/P (MAP) Pulse Ox O2 Delivery O2 Flow Rate FiO2 11/12/18 12:13 98.1 62 18 198/76 (116) 97 11/12/18 09:25 67 168/79 11/12/18 09:23 97.0 67 20 168/79 (108) 96 11/12/18 09:00 Room Air 11/12/18 06:22 155/72 11/12/18 04:00 98.5 70 20 155/72 (99) 96 11/12/18 00:00 98.1 77 20 127/63 (84) 99 11/11/18 21:08 147/80 11/11/18 21:08 70 147/80 11/11/18 21:00 Room Air 11/11/18 20:00 98.2 70 20 147/80 (102) 96 11/11/18 16:00 98.1 71 20 113/81 (92) 95 71 Height (Feet): 5 Height (Inches): 6.00 Weight (Pounds): 159 Objective General Appearance: alert, non-toxic, Chronically Ill Head: normocephalic Eyes: bilateral eye normal inspection, bilateral eye PERRL, bilateral eye EOMI ENT: moist mucus membranes Neck: full range of motion, supple, no bony tend Respiratory: chest non-tender, lungs clear, normal breath sounds Cardiovascular : regular rate, rhythm Gastrointestinal: normal inspection, normal bowel sounds, non tender, no mass, non-distended Genitourinary: no CVA tenderness Musculoskeletal: back normal, normal range of motion Neurologic: alert, motor strength/tone normal, sensory intact, speech normal, oriented Psychiatric: other - Flat affect and denying most symptoms Skin: no rash, warm/dryAbx: Microbiology Date/Time Source Procedure Growth Status 11/09/18 20:30 Urine,Clean Catch Urine Culture - Final Mixed Gram Positive Organism Complete Laboratory Tests Test 11/12/18 05:00 Sodium Level 142 MMOL/L (136-145) Potassium Level 4.5 MMOL/L (3.5-5.1) Chloride Level 111 MMOL/L (98-107) H Carbon Dioxide Level 20 MMOL/L (21-32) L Anion Gap 11 mmol/L (5-15) Blood Urea Nitrogen 36 mg/dL (7-18) H Creatinine 2.7 MG/DL (0.55-1.30) H Estimat Glomerular Filtration Rate mL/min (>60) Glucose Level 132 MG/DL (74-106) H Calcium Level 8.2 MG/DL (8.5-10.1) L Current Medications Medications (Trade) Dose Ordered Sig/Tereza Route PRN Reason Start Time Stop Time Status Last Admin Dose Admin Acetaminophen (Tylenol) 650 mg Q4H PRN ORAL Mild Pain (Pain Scale 1-3) 11/09/18 22:30 12/09/18 22:29 Carvedilol (Coreg) 12.5 mg EVERY 12 HOURS ORAL 11/10/18 09:00 12/10/18 08:59 11/12/18 09:25 Dextrose (Dextrose 50%) 25 ml Q30M PRN IV Hypoglycemia 11/09/18 22:30 12/09/18 22:29 Dextrose (Dextrose 50%) 50 ml Q30M PRN IV Hypoglycemia 11/09/18 22:30 12/09/18 22:29 Diphenhydramine HCl (Benadryl) 25 mg Q6H PRN ORAL Itching/Pruritis 11/09/18 22:30 12/09/18 22:29 Hydralazine HCl (Apresoline) 25 mg Q4HR PRN ORAL For High Blood Pressure 11/10/18 01:00 12/10/18 00:59 11/10/18 04:36 Hydralazine HCl (Apresoline) 50 mg Q8HR ORAL 11/10/18 14:00 12/10/18 13:59 11/12/18 06:22 Insulin Aspart (NovoLOG) BEFORE MEALS AND HS SUBQ 11/10/18 06:30 12/10/18 06:29 11/12/18 12:27 Levofloxacin (Levaquin) 250 mg Q48H ORAL 11/11/18 09:00 11/18/18 08:59 11/11/18 08:15 Pantoprazole (Protonix) 40 mg DAILY ORAL 11/10/18 09:00 12/10/18 08:59 11/12/18 09:25 Henna Pendleton M.D. Nov 12, 2018 13:20
[2018-11-12 16:25] VITALS: BP 193/75
[2018-11-12] MEDS: HydrALAZINE 25mg tab ORAL PRN (16:43)
--- NOTE | 2018-11-12 18:00 | NUR ---
NURSE NOTES: Patient resting,patient ate dinner.No complaints at this time,call light within reach.
--- NOTE | 2018-11-12 19:17 | NUR ---
HAND-OFF: Report given to CINDY GRIGGS
--- NOTE | 2018-11-12 19:30 | NUR ---
NURSE NOTES: Received patient in no apparent distress. A&OX4. IV site patent and intact. Bed in lowest position. Call light within reach. Will continue to monitor.
[2018-11-12 20:00] VITALS: BP 161/80
[2018-11-13] VITALS: BP 137/77
[2018-11-13 04:00] VITALS: BP 193/79
[2018-11-13] MEDS: HydrALAZINE 25mg tab ORAL PRN (04:36)
[2018-11-13] MEDS: HydrALAZINE 50mg tab ORAL SCH ×2 (06:17→14:00)
[2018-11-13] MEDS: NovoLOG Insulin Flexpen SUBQ SCH ×2 (06:18→12:19)
[2018-11-13 07:21] LABS: ANION GAP 11 mmol/L (5-15); BLOOD UREA NITROGEN 34 mg/dL (7-18); CALCIUM 7.9 MG/DL (8.5-10.1); CARBON DIOXIDE 20 MMOL/L (21-32); CHLORIDE 108 MMOL/L (98-107); CREATININE 2.5 MG/DL (0.55-1.30); POTASSIUM 4.1 MMOL/L (3.5-5.1); SODIUM 139 MMOL/L (136-145)
--- NOTE | 2018-11-13 07:26 | NUR ---
HAND-OFF: Report given to Maru GRIGGS.
--- NOTE | 2018-11-13 07:40 | NUR ---
NURSE NOTES: Patient is awake and alert respirations unlabored.Patient sitting up in bed and eating breakfast. Call light within reach.
--- NOTE | 2018-11-13 08:04 | Nephrology Progress Note ---
Assessment/Plan Assessment/Plan: A/P 1) CONCETTA- Cr improved. Down to 2.5 2) Mild left hydronephrosis and right collecting system fullness. Etiology not demonstrated but downstream obstruction possible - enlarged prostate- added flomax - follow up with PCP 1 week post DC 3) UTI- Abx per ID. Completed therapy 4) HTN- stable DC tomorrow with home health post PT evaluation Subjective Date patient seen: Nov 13, 2018 Time patient seen: 08:02 ROS Limited/Unobtainable: No Allergies: Coded Allergies: PENICILLIN G (Verified Allergy, Unknown, 11/08/15) Subjective Patient much improved. PT eval and DC later today Objective Last 24 Hour Vital Signs Date Time Temp Pulse Resp B/P (MAP) Pulse Ox O2 Delivery O2 Flow Rate FiO2 11/13/18 06:17 190/80 11/13/18 04:36 193/79 11/13/18 04:00 99.0 75 18 193/79 (117) 95 11/13/18 00:00 98.5 76 18 137/77 (97) 96 11/12/18 21:35 161/80 11/12/18 21:35 72 161/80 11/12/18 21:00 Room Air 11/12/18 20:00 99.5 72 18 161/80 (107) 97 11/12/18 16:43 193/75 11/12/18 16:25 98.4 75 20 193/75 (114) 95 11/12/18 14:21 196/76 11/12/18 12:13 98.1 62 18 198/76 (116) 97 11/12/18 09:25 67 168/79 11/12/18 09:23 97.0 67 20 168/79 (108) 96 11/12/18 09:00 Room Air Intake and Output 11/12/18 11/13/18 19:00 07:00 Intake Total 630 ml Output Total 100 ml 400 ml Balance 530 ml -400 ml Intake Oral 630 ml Output Urine Total 100 ml 400 ml # Voids 2 # Bowel Movements 1 Laboratory Tests 11/13/18 06:05: Sodium Level 139, Potassium Level 4.1, Chloride Level 108H, Carbon Dioxide Level 20L, Anion Gap 11, Blood Urea Nitrogen 34H, Creatinine 2.5H, Estimat Glomerular Filtration Rate , Glucose Level 159H, Calcium Level 7.9L Height (Feet): 5 Height (Inches): 6.00 Weight (Pounds): 159 General Appearance: no apparent distress, alert EENT: normal ENT inspection Neck: normal alignment, supple Cardiovascular: normal rate, regular rhythm Respiratory/Chest: lungs clear, normal breath sounds Abdomen: non tender, soft Edema: no edema noted Arm (L), no edema noted Arm (R), no edema noted Leg (L), no edema noted Leg (R), no edema noted Pedal (L), no edema noted Pedal (R), no edema noted Generalized Orlando Murphy MD Nov 13, 2018 08:04
--- NOTE | 2018-11-13 08:04 | NUR ---
NURSE NOTES: DR Vasquez here and updated on patient blood pressure,will note new orders.
--- NOTE | 2018-11-13 08:09 | Discharge Instructions ---
Discharge Instructions Discharge Instructions Services at Discharge: home health services Diet: 2 GM sodium (low sodium) Resume Normal Activity?: Yes Activity: light activity Follow Up Orders Follow up with PCP 1 week Coreg Added to Procardia XL due to Hypertension For Congestive Heart Failure Reminder Report to your physician any weight gain of 5 pounds or more in one week. Orlando Murphy MD Nov 13, 2018 08:09
[2018-11-13 08:10] VITALS: BP 185/90
[2018-11-13] MEDS: Carvedilol 12.5mg tab ORAL SCH (08:21)
[2018-11-13 12:06] VITALS: BP 145/69
--- NOTE | 2018-11-13 13:35 | NUR ---
P.T Note: P.T EVALUATION COMPLETED. PATIENT PRESENTED AT BASELINE FUNCTION. PATIENT IS INDEPENDENT WITH ADL/FUNCTIONAL MOBILITY AND GAIT/LOCOMOTION. PATIENT'S CURRENT FUNCTIONAL STATUS DOES NOT REQUIRE P.T SERVICES AT THIS TIME. [place] P.T SERVICES. THANK YOU FOR THIS REFERRAL.
--- NOTE | 2018-11-13 14:41 | NUR ---
NURSE NOTES: Waiting for patient family to take patient home.Patient dressed.patient has belongings.Discharge instructions given. :
--- NOTE | 2018-11-13 15:27 | NUR ---
NURSE NOTES: Patient ID hospital band removed,IV saline lock removed,patient has home medication retrieve from Pharmacy.Patient has discharge prescription.Patient accompany down to Lobby,to private car.Family took patient home.
--- NOTE | 2018-11-13 17:59 | NUR ---
DISCHARGE PLANNING CM received call from nursing [facility] home health for patient. 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
--- NOTE | 2018-11-13 18:24 | NUR ---
DISCHARGE PLANNING Discharge order noted Patient home health has been referred to [facility], Await Acceptance
--- NOTE | 2018-11-15 14:59 | Discharge Summary ---
Discharge Summary Discharge Summary _ DATE OF ADMISSION: 11/09/2018 DATE OF DISCHARGE: 11/13/1988 DISCHARGED BY: dr.De Vasquez REASON FOR ADMISSION: 88 years old male with past medical history of hypertension, diabetes mellitus, congestive heart failure, chronic kidney disease, paroxysmal atrial fibrillation , diabetes mellitus, history of UTI in 2016 and MRSA cellulitis , presented after episode of shaking. Per family blood sugar was low. Upon evaluation vital signs reveal elevated blood pressure 165/63. No fever. Laboratory work-up revealed no leukocytosis, hemoglobin 10.7 hematocrit 30.8. BUN 49, creatinine 3.3. Glucose 127. Lactic acid 0.6. Stable LFT. Troponin negative. Pro BNP 191. Urinalysis revealed evidence of probable UTI. Troponin negative .EKG revealed no acute ischemic changes. Chest x-ray revealed no acute cardiopulmonary pathology. In the emergency department patient pancultured and received empiric antibiotic for urinary tract infection. Patient received clonidine without much improvement in blood pressure , subsequently followed by labetalol. Blood pressure improved. Patient subsequently was admitted for further evaluation and management. CONSULTANTS: ID specialist Dr. Pendleton HOSPITAL COURSE: Patient admitted and started on IV hydration. Renal parameters and electrolytes were closely monitored. Electrolytes corrected as needed. Nephrotoxins were avoided. Renal ultrasound revealed mild left hydronephrosis and right collecting system fullness. Prostatomegaly noted. Normal bilateral kidney echogenicity. Prior to discharge creatinine from 3.3 down to 2.5, and BUN from 49 down to 34. Flomax was added due to finding of enlarged prostate. Patient received 3 days of antibiotics for urinary tract infection as per ID specialist recommendation. Aspiration precaution maintained. Blood pressure was managed with multiply antihypertensive medications, including beta-rayna, calcium channel rayna, and hydralazine. GI prophylaxis provided. Blood sugar was managed with sliding scale of insulin. No evidence of hypoglycemia. Supportive care provided. Patient clinically stabilized and was ready for discharge home with home health services to follow. FINAL DIAGNOSES: Acute kidney injury on chronic kidney disease Mild left hydronephrosis and right collecting system fullness Enlarged prostate UTI , status post treatment Hypertension Diabetes mellitus type 2 DISCHARGE MEDICATIONS: See Medication Reconciliation list. DISCHARGE INSTRUCTIONS: Patient was discharged home with home health services. Follow up with primary care provider in one week. I have been assigned to dictate discharge summary for this account. I was not involved in the patient's management. Andra Pool NP Nov 15, 2018 14:59
--- NOTE | 2018-11-16 13:51 | NUR ---
*-* DISCHARGE PLANNING *-* PATIENT HAS BEEN REFERRED TO: [facility] P:[phone] F:[phone]
== END 2018-11-13 15:23 | disposition home health service (06) | DRG 683 ==
LOC: EDUNIT# 18:45 → EMR 22:12 → 4E 22:14 → EDBEDREQ 22:33 → 4E 11-11 20:54
DX: N17.9 Acute kidney failure, unspecified (principal); N39.0 Urinary tract infection, site not specified; Z88.0 Allergy status to penicillin; I12.9 Hypertensive chronic kidney disease with stage 1 through stage 4 chronic kidney disease, or unspecified chronic kidney disease; E11.22 Type 2 diabetes mellitus with diabetic chronic kidney disease; N18.4 Chronic kidney disease, stage 4 (severe); I48.0 Paroxysmal atrial fibrillation; N13.39 Other hydronephrosis
CPT/HCPCS: 36415; 71045; 76770; 80048; 80053; 81003; 82550; 82962; 83605; 83690; 83880; 84484; 85025; 85610; 85730; 87086; 96365; 96375; 99285; J1815